=== PATIENT | male | born 1980 ===

== ENCOUNTER 2020-07-23 12:23 | Observation (INO) | payer OTHER, SELFPAY ==
[2020-07-23] VITALS (21 sets, daily range): BP systolic 88–128; BP diastolic 51–80; PULSE 54–84; RESP 17–26; TEMP 36.5–36.7; O2SAT 96–100; BMI 25.0
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
[2020-07-23 12:52] LABS: Add Manual Diff / Slide Review NO; Basophils Absolute Auto 0 /uL (0-100); Basophils Percent Auto 0.3 % (0-2); Eosinophils Absolute Auto 0 /uL (0-450); Eosinophils Percent Auto 0.2 % (2-4); Hemoglobin 13.6 g/dL (13.5-17.5); Lymphocytes Absolute Auto 1700 /uL (1100-4500); Lymphocytes Percent Auto 12.8 % (25-40); Mean Corpuscular HGB Conc 32.3 % (30-36); Mean Corpuscular Hemoglobin 25.5 PG (26-34); Mean Corpuscular Volume 79.1 fL (80-100); Monocytes Absolute Auto 800 /uL (0-900); Monocytes Percent Auto 5.9 % (3-14); Neutrophils Absolute Auto 10600 /uL (1500-7000); Neutrophils Percent Auto 80.8 % (50-75); Platelet Count 285 X10^3/uL (150-400); Red Blood Cell Count 5.31 X10^6/uL (4.5-5.9); White Blood Cell Count 13.1 X10^3/uL (4.5-11.0)
[2020-07-23 12:54] LABS: INR 1.1 (0.9-1.3); Prothrombin Time 12.7 SECONDS (10.1-12.7)
[2020-07-23 12:57] LABS: PTT Partial Thromboplastin Tim 28 SECONDS (26.4-36.2)
[2020-07-23 12:59] LABS: Alanine Aminotransferase 28 IU/L (<50); Albumin 4.5 g/dL (3.5-5.0); Albumin Globulin Ratio 1.1 (1.0-2.8); Alkaline Phosphatase 51 U/L (38-126); Aspartate Aminotransferase 47 IU/L (17-59); BUN Creatinine Ratio 14.7 (6-22); Bilirubin Total 0.7 mg/dL (0.2-1.3); Blood Urea Nitrogen 19 mg/dL (9-20); Calcium 9.2 mg/dL (8.4-10.2); Carbon Dioxide 28 mmol/L (22-32); Chloride 107 mmol/L (98-107); Estimated Glomerular Filt Rate > 60.0 mL/min (>60); Ethanol (ETOH) < 10 mg/dL; Glucose 118 mg/dL (70-100); HEMOLYSIS 18 (0-50); Lipase 148 U/L (23-300); Potassium 4.5 mmol/L (3.4-5.1); Sodium 140 mmol/L (137-145); Total Protein 8.5 g/dL (6.3-8.2)
[2020-07-23 13:27] LABS: Creatine Kinase 485 U/L (55-170)
[2020-07-23] MEDS: ONDANSETRON 4 MG/2 ML INJ IV (13:31)
[2020-07-23] MEDS: MORPHINE 4 MG/ML INJ IV (13:32)
[2020-07-23] MEDS: SODIUM CHLORIDE 0.9% 1,000 ML 1000 ML IV (14:26)
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
[2020-07-23] MEDS: SODIUM CHLORIDE 0.9% 1,000 ML 150 ML IV (14:37)
[2020-07-23] MEDS: CYCLOBENZAPRINE 10 MG TABLET PO (14:37)
[2020-07-23] MEDS: ACETAMINOPHEN 325 MG TABLET 650 MG PO ×2 (14:38→23:33)
--- NOTE | 2020-07-23 14:55 | PC.NURSE ---
Swelling in lateral left ankle. Ice pack applied
[2020-07-23 15:52] LABS: BUN Creatinine Ratio 16.4 (6-22); Blood Urea Nitrogen 18 mg/dL (9-20); Calcium 9.1 mg/dL (8.4-10.2); Carbon Dioxide 27 mmol/L (22-32); Chloride 108 mmol/L (98-107); Creatine Kinase 929 U/L (55-170); Estimated Glomerular Filt Rate > 60.0 mL/min (>60); Glucose 97 mg/dL (70-100); HEMOLYSIS < 15 (0-50); Potassium 4.5 mmol/L (3.4-5.1); Sodium 142 mmol/L (137-145)
[2020-07-23] MEDS: HYDROCODONE/ACET 5/325 TABLET 1 TAB PO (16:25)
[2020-07-23] MEDS: KETOROLAC 60 MG/2 ML VIAL 15 MG IV (16:26)
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
[2020-07-23 17:08] LABS: Bacteria Urine Occasional (0-1); Culture Indicated Urine Cult Not Indicated; RBC Urine 1-5/HPF (0-5/HPF); WBC Urine 1-5/HPF (0-5/HPF)
[2020-07-23] MEDS: HYDROMORPHONE 1 MG INJ IV (17:45)
[2020-07-23 18:11] LABS: COVID19 -Nasal RAPID Negative (Negative)
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
--- NOTE | 2020-07-23 19:07 | PC.NURSE ---
Pt given 0.5mg Dilaudid at 1745 for pain. Didn't give remaining 0.5mg due to low BP after first half of dose, per Chin
[2020-07-23] MEDS: OXYCODONE IR 10 MG TABLET PO (20:51)
--- NOTE | 2020-07-23 22:16 | PC.NURSE ---
Admit/Evening Shift Note- Patient arrived to room via stretcher from ER at 1930. Patient alert and oriented and able to make needs known to staff. Admission questions done, medications reviewed, physical assessment done, and skin check completed. left ankle in air cast. ice packs applied. soft collar in place for comfort. Patient oriented to bed and bed controls, room, bathroom, lights, phone, menu, and call leija/tv remote. Safety measures in place. Patient agrees to call for assistance. call leija and phone within reach. will continue to monitor.
[2020-07-24] MEDS: OXYCODONE IR 10 MG TABLET PO ×4 (00:48→13:31)
[2020-07-24 02:00] VITALS: O2SAT 98
--- NOTE | 2020-07-24 03:37 | PC.NURSE ---
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 Patient medicated with PRN Oxycodone at 0048. Upon reassessment, patient still complaining of 6/10 pain with stiffness and soreness in neck. Soft cervical collar remains in place. Ice pack given to patient. Patient with very little sleep throughout shift. However, neuro remains intact, along with left lower extremity CMS. Patient eating/drinking well. Patient able to make needs/concerns voiced. Call light within reach. Will continue to monitor patient.
[2020-07-24 04:45] VITALS: BP 106/46; PULSE 60; RESP 18; TEMP 36.7; O2SAT 98
[2020-07-24] MEDS: ACETAMINOPHEN 325 MG TABLET 650 MG PO ×2 (05:31→11:59)
[2020-07-24 05:49] LABS: Add Manual Diff / Slide Review NO; Basophils Absolute Auto 0 /uL (0-100); Basophils Percent Auto 0.4 % (0-2); Eosinophils Absolute Auto 100 /uL (0-450); Eosinophils Percent Auto 0.9 % (2-4); Hematocrit 36.9 % (41-53); Hemoglobin 11.9 g/dL (13.5-17.5); Lymphocytes Absolute Auto 1800 /uL (1100-4500); Lymphocytes Percent Auto 25.3 % (25-40); Mean Corpuscular HGB Conc 32.3 % (30-36); Mean Corpuscular Hemoglobin 25.7 PG (26-34); Mean Corpuscular Volume 79.6 fL (80-100); Monocytes Absolute Auto 1000 /uL (0-900); Monocytes Percent Auto 14.1 % (3-14); Neutrophils Absolute Auto 4200 /uL (1500-7000); Neutrophils Percent Auto 59.3 % (50-75); Platelet Count 212 X10^3/uL (150-400); Red Blood Cell Count 4.64 X10^6/uL (4.5-5.9); Red Cell Distribution Width 15.3 % (11.6-14.8); White Blood Cell Count 7.2 X10^3/uL (4.5-11.0)
[2020-07-24 06:00] VITALS: O2SAT 98
[2020-07-24 07:50] VITALS: O2SAT 98
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
[2020-07-24 09:03] VITALS: BP 104/67; PULSE 57; RESP 16; TEMP 36.8; O2SAT 98
[2020-07-24] MEDS: SODIUM CHLORIDE 0.9% FLUSH 10 ML IV (09:33)
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
--- NOTE | 2020-07-24 14:46 | PC.NURSE ---
Discharge: Pt feels ready to go home. Seen by PT and they worked with pt and his crutches. No changes to the splint he is wearing. Neck collar use as needed. Pt is still sore over his entire body. Reviewed d/c packet. Rx given for oxy. Questions answered. Pt d/c home via auto w/friend.
== END 2020-07-24 14:45 | disposition home or self-care (01) ==
LOC: ED 18:05 → AC 18:09
PROVIDERS: Admitting Provider Surgery; Emergency Provider Nurse Practitioner Family; Visit Provider Surgery
DX: S37.012A Minor contusion of left kidney, initial encounter (principal); M54.5 Low back pain; M25.572 Pain in left ankle and joints of left foot; S19.9XXA Unspecified injury of neck, initial encounter; V03.90XA Pedestrian on foot injured in collision with car, pick-up truck or van, unspecified whether traffic or nontraffic accident, initial encounter; F17.210 Nicotine dependence, cigarettes, uncomplicated; Z11.59 Encounter for screening for other viral diseases
CPT/HCPCS: 29540; 36415; 70450; 71045; 72070; 72100; 72125; 72220; 73521; 73590; 73600; 74176; 80048; 80053; 80320; 81003; 81015; 82550; 83690; 85025; 85610; 85730; 86850; 86900; 86901; 87635; 96361; 96374; 96375; 97161; 99217; 99219; 99285; G0378; J1170; J1885; J2270; J2405